=== PATIENT | female | born 1995 | race Caucasian/White ===

== ENCOUNTER 2017-04-09 23:49 | Outpatient (CLI) | payer MEDICAID, OTHER ==
[~2017-04-09] VITALS: Ht 162.6 cm; Wt 81.8 kg
[2017-04-09 23:53] VITALS: BP 119/72
[2017-04-10] MEDS ORDERED: ZOLPIDEM 5MG TABLET PO ONE (00:30)
[2017-04-10] MEDS ORDERED: ZOLPIDEM 5MG TABLET ONE (00:34)
== END 2017-04-10 00:45 | disposition home or self-care (01) ==
LOC: LDOP 23:49
PROVIDERS: ATTEND Obstetrics & Gynecology
DX: Z34.93 Encounter for supervision of normal pregnancy, unspecified, third trimester (principal); Z3A.37 37 weeks gestation of pregnancy
CPT/HCPCS: 59025; 99201; G0463

== ENCOUNTER 2017-04-10 04:32 | Inpatient (IN) | payer MEDICAID, OTHER ==
[~2017-04-10] VITALS: Ht 162.6 cm; Wt 81.8 kg
[2017-04-10] MEDS: D5%-LACTATED RINGERS 1,000 ML IV SCH ×3 (04:49→20:49)
[2017-04-10] MEDS ORDERED: OXYTOCIN 30U/ 0.9% NaCL 500ML 500 ML IV ONE (04:49)
[2017-04-10 04:53] VITALS: BP 132/86
[2017-04-10] MEDS ORDERED: ONDANSETRON 2MG/ML, 2ML IVPush PRN ×2 (05:00→15:30)
[2017-04-10] MEDS ORDERED: CALCIUM CARBONATE 500 MG TAB.CHEW PO PRN (05:00)
[2017-04-10] MEDS ORDERED: PENICILLIN GK 5,000,000 UNITS in DEXTROSE 5% 100 ML IVPB ONE (05:00)
[2017-04-10] MEDS ORDERED: FENTANYL PF 100 MCG/2ML IV PRN (05:00)
[2017-04-10] MEDS ORDERED: FENTANYL PF 100 MCG/2ML ONE ×4 (05:14→12:41)
[2017-04-10] MEDS ORDERED: ONDANSETRON 2MG/ML, 2ML ONE (05:15)
[2017-04-10] MEDS ORDERED: NEWBORN KIT ONE (05:15)
[2017-04-10] MEDS ORDERED: OXYTOCIN 30U/ 0.9% NaCL 500ML 500 ML ONE ×2 (05:15→23:57)
[2017-04-10] MEDS: FENTANYL PF 100 MCG/2ML IVPush PRN ×3 (05:21→11:45)
[2017-04-10] MEDS: LACTATED RINGERS 1,000 ML IV SCH ×4 (05:28→23:12)
[2017-04-10] MEDS: PENICILLIN GK 2,500,000 UNITS in DEXTROSE 5% 100 ML IV SCH ×4 (09:15→21:42)
[2017-04-10] MEDS ORDERED: BUPIVACAINE 0.25% ONE (12:42)
[2017-04-10] MEDS ORDERED: FENTANYL/BUPIV./NS/PF 250 ML EPIDCONT ONE (12:42)
[2017-04-10] MEDS ORDERED: OXYTOCIN 30U/ 0.9% NaCL 500ML 500 ML IV PRN (13:35)
[2017-04-10] MEDS ORDERED: FENTANYL/BUPIV./NS/PF 250 ML EPIDCONT SCH (15:12)
[2017-04-10] MEDS ORDERED: EPHEDRINE 50 MG/ML, 1ML IVPush PRN (15:30)
[2017-04-10] MEDS ORDERED: LACTATED RINGERS 1,000 ML IVBOLUS PRN (15:30)
[2017-04-10] MEDS ORDERED: MISOPROSTOL 200 MCG TABLET ONE (21:45)
[2017-04-10] MEDS ORDERED: LIDOCAINE 1%, 20ML ONE (21:45)
[2017-04-10] MEDS ORDERED: IBUPROFEN 600 MG TABLET ONE (23:56)
[2017-04-11] VITALS (7 sets, daily range): BP systolic 98–112; BP diastolic 50–68
[2017-04-11] MEDS ORDERED: ACETAMINOPHEN 325 MG TABLET PO PRN
[2017-04-11] MEDS ORDERED: DIPH,PERTUSS(ACELL),TET VAC/PF NC IM-VACC PRN
[2017-04-11] MEDS ORDERED: MEASLES,MUMPS&RUBELLA VACC/PF 0.5 ML SQ PRN
[2017-04-11] MEDS ORDERED: METHYLERGONOVINE 0.2 MG/ML IM PRN
[2017-04-11] MEDS ORDERED: MISOPROSTOL 200 MCG TABLET PR PRN
[2017-04-11] MEDS ORDERED: OXYcodone/APAP 5/325MG TABLET PO PRN ×2
[2017-04-11] MEDS ORDERED: CARBOPROST TROMETHAMINE 250 MCG/ML, 1ML IM PRN
[2017-04-11] MEDS ORDERED: RHOGAM FROM BLOOD BANK 1 NOTE EA IM/IV ONE
[2017-04-11] MEDS: IBUPROFEN 600 MG TABLET PO PRN ×3 (00:02→19:05)
[2017-04-11] MEDS: OXYTOCIN 30U/ 0.9% NaCL 500ML 500 ML IV SCH ×2 (00:02→09:45)
[2017-04-11] MEDS: LACTATED RINGERS 1,000 ML IV SCH (00:03)
[2017-04-11 07:59] LABS: DIFF TOTAL CELLS COUNTED 100 CELL DIFF
[2017-04-11] MEDS: PRENATAL VIT/IRON/FA 1 EACH TABLET PO SCH (08:50)
[2017-04-11] MEDS: DOCUSATE 100 MG CAPSULE PO PRN ×2 (08:50→19:04)
[2017-04-11 10:02] LABS: VERIFY COUNTS? YES
[2017-04-12 07:10] VITALS: BP 114/76
[2017-04-12] MEDS: IBUPROFEN 600 MG TABLET PO PRN (08:34)
[2017-04-12] MEDS: DOCUSATE 100 MG CAPSULE PO PRN (08:34)
[2017-04-12] MEDS: PRENATAL VIT/IRON/FA 1 EACH TABLET PO SCH (08:34)
== END 2017-04-12 11:37 | disposition home or self-care (01) | DRG 775 ==
LOC: LDOP 04:32 → LDIP 04:56 → 2NW 04-11 02:35
PROVIDERS: ADMIT Obstetrics & Gynecology; ATTEND Obstetrics & Gynecology
PROC: 10E0XZZ Delivery of Products of Conception, External Approach (ICD-10-PCS; principal; 2017-04-10)
PROC: 0TQDXZZ Repair Urethra, External Approach (ICD-10-PCS; 2017-04-10)
PROC: 00HU33Z Insertion of Infusion Device into Spinal Canal, Percutaneous Approach (ICD-10-PCS; 2017-04-10)
PROC: 3E0R3CZ (ICD-10-PCS; 2017-04-10)
DX: O71.82 Other specified trauma to perineum and vulva (principal); Z37.0 Single live birth; Z3A.38 38 weeks gestation of pregnancy
CPT/HCPCS: 36415; 85025; 86850; 86900; J2405; J2540; J3010; J2590; J7120; J7121